=== PATIENT | male | born 1965 | race Caucasian/White ===

== ENCOUNTER 2020-11-24 14:36 | Inpatient (IN) | payer OTHER ==
[2020-11-24 16:15] LABS: BASO % 0.9 % (0-2.0); EOS % 2.6 % (0-4.5); LYMPH % 21.7 % (8-40); MCH 27.1 pg (25.7-33.7); MCHC 32.3 g/dl (32.0-35.9); MEAN CELL VOLUME 83.8 fl (80-96); NEUT % 67.8 % (42.8-82.8); PLATELET COUNT 321 K/MM3 (134-434); RBC 4.41 M/mm3 (4.00-5.60); RDW 14.6 % (11.9-15.9); WHITE BLOOD COUNT 5.7 K/mm3 (4.0-10.0)
[2020-11-24 16:33] LABS: INR 1.28 (0.83-1.09); PROTHROMBIN TIME (PATIENT) 15.6 SEC (9.7-13.0)
[2020-11-24 16:36] LABS: ACTIVATED PTT 34.3 SECONDS (25.2-36.5)
[2020-11-24 16:37] LABS: CHLORIDE 106 mmol/L (98-107); SODIUM 140 mmol/L (136-145)
[2020-11-24 16:39] LABS: CALCIUM 9.1 mg/dL (8.5-10.1)
[2020-11-24 16:40] LABS: ALBUMIN 3.6 g/dl (3.4-5.0); ANION GAP 5 MMOL/L (8-16); BLOOD UREA NITROGEN 14.3 mg/dL (7-18); CO2 29 mmol/L (21-32); GLUCOSE,RANDOM 97 mg/dL (74-106)
[2020-11-24 16:44] LABS: CHOLESTEROL 138 mg/dL (50-200); SGOT/AST 27 U/L (15-37); SGPT/ALT 58 U/L (13-61); TRIGLYCERIDES 85 mg/dL (0-150)
[2020-11-24 16:45] LABS: ALK PHOS 74 U/L (45-117); BILIRUBIN,TOTAL 0.4 mg/dL (0.2-1); HDL CHOLESTEROL 51 mg/dL (40-60); LDL CHOLESTEROL (ONLY SJRH) 74 mg/dL (5-100); TOT PROT 7.1 g/dl (6.4-8.2)
[2020-11-24 17:29] LABS: EPI CELLS 1 /uL (0-25.1); HYALINE CASTS 1 /uL (0-3.1); PH,URINE 6.5 (5.0-8.0); URINE APPEARANCE TURBID; URINE BACTERIA 3956 /uL (0-1359); URINE BILIRUBIN NEGATIVE (NEGATIVE); URINE COLOR YELLOW; URINE GLUCOSE (UA) NEGATIVE (NEGATIVE); URINE KETONE NEGATIVE (NEGATIVE); URINE LEUK ESTERASE 3+ (NEGATIVE); URINE NITRITE NEGATIVE (NEGATIVE); URINE PROTEIN NEGATIVE (NEGATIVE); URINE RBC 49 /uL (0-23.9); URINE UROBILINOGEN 0.2 mg/dL (0.2-1.0); URINE WBC 5421 /uL (0-25.8)
[2020-11-24] MEDS ORDERED: CEFTRIAXONE 1 GM/50 ML BAG ONE (19:32)
[2020-11-24] MEDS: SODIUM CHLORIDE 1,000 ML IV SCH (19:48)
[2020-11-24] MEDS: CEFTRIAXONE 1 GM in DEXTROSE 5%-WATER - 50 ML IVPB SCH (19:48)
[2020-11-24] MEDS ORDERED: APIXABAN 5 MG TABLET PO SCH (22:00)
[2020-11-24] MEDS ORDERED: APIXABAN 5 MG TABLET ONE (22:46)
[2020-11-24] MEDS ORDERED: ATORVASTATIN CA 80 MG TABLET (FP) ONE (22:47)
[2020-11-24] MEDS: APIXABAN 5 MG TABLET PO SCH (22:57)
[2020-11-24] MEDS: ATORVASTATIN CA 80 MG TABLET (FP) PO SCH (22:57)
[2020-11-25 06:50] LABS: INR 1.38 (0.83-1.09); PROTHROMBIN TIME (PATIENT) 16.8 SEC (9.7-13.0)
[2020-11-25 07:08] LABS: ALBUMIN 3.2 g/dl (3.4-5.0); BLOOD UREA NITROGEN 15.5 mg/dL (7-18); CALCIUM 8.6 mg/dL (8.5-10.1)
[2020-11-25 07:12] LABS: BILIRUBIN,TOTAL 0.4 mg/dL (0.2-1); PHOSPHOROUS 4.2 mg/dL (2.5-4.9)
[2020-11-25 07:13] LABS: TOT PROT 6.5 g/dl (6.4-8.2)
[2020-11-25 09:13] LABS: HEMATOCRIT 36.3 % (35.4-49); MCH 27.7 pg (25.7-33.7); MEAN PLT VOLUME 7.1 fl (7.5-11.1); PLATELET COUNT 313 K/MM3 (134-434); RBC 4.33 M/mm3 (4.00-5.60); RDW 14.6 % (11.9-15.9); WHITE BLOOD COUNT 7.3 K/mm3 (4.0-10.0)
[2020-11-25] MEDS ORDERED: APIXABAN 5 MG TABLET ONE (10:47)
[2020-11-25] MEDS ORDERED: ASPIRIN COATED 81 MG TABLET.EC ONE (10:47)
[2020-11-25] MEDS ORDERED: amLODIPine BESYLATE 5 MG TABLET (FP) ONE (10:47)
[2020-11-25] MEDS ORDERED: CEFTRIAXONE 1 GM/50 ML BAG ONE (10:48)
[2020-11-25] MEDS ORDERED: TAMSULOSIN HCL 0.4 MG CAP ONE (10:48)
[2020-11-25] MEDS: amLODIPine BESYLATE 5 MG TABLET (FP) PO SCH (11:00)
[2020-11-25] MEDS: CEFTRIAXONE 1 GM in DEXTROSE 5%-WATER - 50 ML IVPB SCH (11:00)
[2020-11-25] MEDS: ASPIRIN COATED 81 MG TABLET.EC PO SCH (11:00)
[2020-11-25] MEDS: APIXABAN 5 MG TABLET PO SCH ×2 (11:00→21:53)
[2020-11-25] MEDS: TAMSULOSIN HCL 0.4 MG CAP PO SCH (11:00)
[2020-11-25] MEDS: SODIUM CHLORIDE 1,000 ML IV SCH (16:43)
[2020-11-25] MEDS: ATORVASTATIN CA 80 MG TABLET (FP) PO SCH (21:53)
[2020-11-25 23:13] VITALS: BMI 21.4
[2020-11-26] MEDS ORDERED: DEXTROSE 5%-WATER - 50 ML IVPB ONE (08:24)
[2020-11-26] MEDS ORDERED: cefTRIAXone SODIUM 1 GM VIAL ONE (08:24)
[2020-11-26] MEDS: amLODIPine BESYLATE 5 MG TABLET (FP) PO SCH (09:03)
[2020-11-26] MEDS: APIXABAN 5 MG TABLET PO SCH ×2 (09:03→21:48)
[2020-11-26] MEDS: ASPIRIN COATED 81 MG TABLET.EC PO SCH (09:03)
[2020-11-26] MEDS: TAMSULOSIN HCL 0.4 MG CAP PO SCH (09:03)
[2020-11-26] MEDS: CEFTRIAXONE 1 GM in DEXTROSE 5%-WATER - 50 ML IVPB SCH (09:03)
[2020-11-26 11:13] LABS: BASO % 0.9 % (0-2.0); EOS % 2.5 % (0-4.5); HEMOGLOBIN 12.4 GM/dL (11.7-16.9); LYMPH % 22.6 % (8-40); MCHC 33.6 g/dl (32.0-35.9); MEAN CELL VOLUME 83.5 fl (80-96); MEAN PLT VOLUME 7.1 fl (7.5-11.1); MONO % 8.7 % (3.8-10.2); NEUT % 65.3 % (42.8-82.8); PLATELET COUNT 302 K/MM3 (134-434); RBC 4.43 M/mm3 (4.00-5.60); RDW 14.5 % (11.9-15.9); WHITE BLOOD COUNT 4.8 K/mm3 (4.0-10.0)
[2020-11-26 11:39] LABS: ALBUMIN 3.2 g/dl (3.4-5.0); BLOOD UREA NITROGEN 14.3 mg/dL (7-18)
[2020-11-26 11:42] LABS: CREATININE 0.9 mg/dL (0.55-1.3)
[2020-11-26 11:43] LABS: BILIRUBIN,TOTAL 0.4 mg/dL (0.2-1); TOT PROT 6.9 g/dl (6.4-8.2)
[2020-11-26] MEDS ORDERED: PT OWN MED DRAWER 7, Y5N ONE (12:52)
[2020-11-26] MEDS: ATORVASTATIN CA 80 MG TABLET (FP) PO SCH (21:48)
[2020-11-27 07:06] LABS: BASO % 0.8 % (0-2.0); EOS % 3.8 % (0-4.5); HEMATOCRIT 34.8 % (35.4-49); HEMOGLOBIN 11.7 GM/dL (11.7-16.9); LYMPH % 27.1 % (8-40); MCH 28.3 pg (25.7-33.7); MCHC 33.6 g/dl (32.0-35.9); MEAN CELL VOLUME 84.3 fl (80-96); MEAN PLT VOLUME 7.3 fl (7.5-11.1); MONO % 8.9 % (3.8-10.2); NEUT % 59.4 % (42.8-82.8); PLATELET COUNT 267 K/MM3 (134-434); RBC 4.13 M/mm3 (4.00-5.60); RDW 14.5 % (11.9-15.9); WHITE BLOOD COUNT 3.9 K/mm3 (4.0-10.0)
[2020-11-27 07:37] LABS: BLOOD UREA NITROGEN 15.9 mg/dL (7-18)
[2020-11-27 07:38] LABS: CALCIUM 8.4 mg/dL (8.5-10.1); MAGNESIUM 1.9 mg/dL (1.8-2.4)
[2020-11-27 07:42] LABS: BILIRUBIN,TOTAL 0.4 mg/dL (0.2-1); TOT PROT 6.3 g/dl (6.4-8.2)
[2020-11-27] MEDS ORDERED: DEXTROSE 5%-WATER - 50 ML IVPB ONE (08:24)
[2020-11-27] MEDS ORDERED: cefTRIAXone SODIUM 1 GM VIAL ONE (08:24)
[2020-11-27] MEDS: amLODIPine BESYLATE 5 MG TABLET (FP) PO SCH (09:03)
[2020-11-27] MEDS: ASPIRIN COATED 81 MG TABLET.EC PO SCH (09:03)
[2020-11-27] MEDS: TAMSULOSIN HCL 0.4 MG CAP PO SCH (09:03)
[2020-11-27] MEDS: CEFTRIAXONE 1 GM in DEXTROSE 5%-WATER - 50 ML IVPB SCH (09:04)
[2020-11-27] MEDS: APIXABAN 5 MG TABLET PO SCH ×2 (09:04→21:22)
[2020-11-27] MEDS: ATORVASTATIN CA 80 MG TABLET (FP) PO SCH (21:22)
[2020-11-28 06:38] LABS: BASO % 0.9 % (0-2.0); EOS % 3.1 % (0-4.5); HEMATOCRIT 34.5 % (35.4-49); HEMOGLOBIN 11.6 GM/dL (11.7-16.9); LYMPH % 30.6 % (8-40); MCHC 33.7 g/dl (32.0-35.9); MEAN CELL VOLUME 83.2 fl (80-96); MEAN PLT VOLUME 7.1 fl (7.5-11.1); MONO % 8.9 % (3.8-10.2); NEUT % 56.5 % (42.8-82.8); PLATELET COUNT 266 K/MM3 (134-434); RBC 4.14 M/mm3 (4.00-5.60); RDW 14.7 % (11.9-15.9); WHITE BLOOD COUNT 4.1 K/mm3 (4.0-10.0)
[2020-11-28 06:58] LABS: ALBUMIN 2.9 g/dl (3.4-5.0); CALCIUM 8.4 mg/dL (8.5-10.1); MAGNESIUM 1.8 mg/dL (1.8-2.4)
[2020-11-28 07:02] LABS: BILIRUBIN,TOTAL 0.6 mg/dL (0.2-1); CREATININE 1.1 mg/dL (0.55-1.3)
[2020-11-28 07:03] LABS: TOT PROT 6.3 g/dl (6.4-8.2)
[2020-11-28] MEDS ORDERED: DEXTROSE 5%-WATER - 50 ML IVPB ONE (09:42)
[2020-11-28] MEDS ORDERED: cefTRIAXone SODIUM 1 GM VIAL ONE (09:42)
[2020-11-28] MEDS: CEFTRIAXONE 1 GM in DEXTROSE 5%-WATER - 50 ML IVPB SCH (10:01)
[2020-11-28] MEDS: TAMSULOSIN HCL 0.4 MG CAP PO SCH (10:01)
[2020-11-28] MEDS: APIXABAN 5 MG TABLET PO SCH (10:01)
[2020-11-28] MEDS: amLODIPine BESYLATE 5 MG TABLET (FP) PO SCH (10:01)
[2020-11-28] MEDS: ASPIRIN COATED 81 MG TABLET.EC PO SCH (10:01)
[2020-11-28 10:48] VITALS: BP 110/66; PULSE 65; TEMP 98.7
== END 2020-11-28 12:03 | disposition home or self-care (01) | DRG 58 ==
LOC: JER 14:36 → JERBED 17:22 → J4S 11-25 19:55
PROVIDERS: ADMIT Internal Medicine; ATTEND Nurse Practitioner Family
DX: I67.2 Cerebral atherosclerosis (principal); G46.4 Cerebellar stroke syndrome; N39.0 Urinary tract infection, site not specified; G81.92 Hemiplegia, unspecified affecting left dominant side; I10 Essential (primary) hypertension; E78.5 Hyperlipidemia, unspecified; U07.1 COVID-19; N40.0 Benign prostatic hyperplasia without lower urinary tract symptoms
CPT/HCPCS: 36415; 70450-TC; 70551-TC; 71045-TC-FY; 80053; 80061; 81003; 82550; 83721; 83735; 84100; 84443; 84484; 85025; 85027; 85610; 85730; 86769; 86850; 86900; 86901; 87086; 93005; 93010; 93880-TC; 97116-GP; 97161-GP; 99285-25; C9803; U0003; U0005

== ENCOUNTER 2020-12-30 12:29 | Emergency (ER) | payer OTHER ==
[2020-12-30 12:44] VITALS: TEMP 97.1; BMI 27.4
[2020-12-30 13:18] LABS: BASO % 1.3 % (0-2.0); EOS % 10.6 % (0-4.5); HEMATOCRIT 40.4 % (35.4-49); HEMOGLOBIN 13.3 GM/dL (11.7-16.9); LYMPH % 25.4 % (8-40); MCH 27.9 pg (25.7-33.7); MCHC 32.9 g/dl (32.0-35.9); MEAN CELL VOLUME 84.8 fl (80-96); MEAN PLT VOLUME 7.8 fl (7.5-11.1); MONO % 7.3 % (3.8-10.2); NEUT % 55.4 % (42.8-82.8); PLATELET COUNT 189 K/MM3 (134-434); RBC 4.76 M/mm3 (4.00-5.60); WHITE BLOOD COUNT 4.2 K/mm3 (4.0-10.0)
[2020-12-30 13:25] LABS: INR 1.29 (0.83-1.09); PROTHROMBIN TIME (PATIENT) 15.8 SEC (9.7-13.0)
[2020-12-30 13:28] LABS: ACTIVATED PTT 33.6 SECONDS (25.2-36.5)
[2020-12-30 13:33] LABS: CALCIUM 9.1 mg/dL (8.5-10.1)
[2020-12-30 13:34] LABS: BLOOD UREA NITROGEN 17.8 mg/dL (7-18)
[2020-12-30 13:39] LABS: BILIRUBIN,TOTAL 0.4 mg/dL (0.2-1); TOT PROT 7.4 g/dl (6.4-8.2)
[2020-12-30] MEDS ORDERED: MECLIZINE HCL 25 MG TABLET (FP) PO ONE (14:34)
[2020-12-30] MEDS ORDERED: METOCLOPRAMIDE HCL INJECTION 10 MG/2 ML VIAL IVPUSH ONE (14:34)
[2020-12-30] MEDS ORDERED: MECLIZINE HCL 25 MG TABLET (FP) ONE (14:46)
[2020-12-30] MEDS ORDERED: METOCLOPRAMIDE HCL INJECTION 10 MG/2 ML VIAL ONE (14:46)
[2020-12-30 21:03] VITALS: BP 120/80; PULSE 70
== END 2020-12-30 21:22 | disposition home or self-care (01) ==
LOC: JER 12:29
PROC: 3E033NZ Introduction of Analgesics, Hypnotics, Sedatives into Peripheral Vein, Percutaneous Approach (ICD-10-PCS; principal; 2020-12-30)
DX: R42 Dizziness and giddiness (principal)
CPT/HCPCS: 36415; 70450-TC; 70551-TC; 71045-TC-FY; 80053; 80061; 83721; 85025; 85610; 85730; 86850; 86900; 86901; 93005; 93010; 99285-25